=== PATIENT | female | born 1975 | race Asian ===

== ENCOUNTER → 2024-07-13 08:41 | Outpatient (REF) | payer OTHER, SELFPAY | LOC: HWRAD 08:41 | PROVIDERS: ATTENDING PHYSICIAN Nurse Practitioner Family; REFERRING PHYSICIAN Obstetrics & Gynecology Gynecology | DX: N94.6 Dysmenorrhea, unspecified (principal) | CPT/HCPCS: 76830; 76856 ==

== ENCOUNTER → 2024-08-30 09:35 | Outpatient (REF) | payer OTHER, SELFPAY | LOC: HWWDC 09:35 | PROVIDERS: ATTENDING PHYSICIAN Obstetrics & Gynecology Gynecology; FAMILY PHYSICIAN Family Medicine | DX: Z12.31 Encounter for screening mammogram for malignant neoplasm of breast (principal) | CPT/HCPCS: 77063; 77067 ==